=== PATIENT | female | born 1950 | race Caucasian/White ===

== ENCOUNTER → 2020-01-21 11:06 | Outpatient (CLI) | payer MEDICARE, SELFPAY ==
--- NOTE | ~2020-01-21 | US_ITS ---
EXAMINATION: US transvaginal DATE: 01/21/2020 11:37 INDICATION: Left adnexal cyst on MRI TECHNIQUE: Multiple endovaginal sonographic images of the pelvis were obtained. COMPARISON: None. FINDINGS: The uterus is surgically absent. The ovaries are not visualized due to bowel gas however n o adnexal abnormality is seen. There is no free fluid in the pelvis. IMPRESSION: 1. No sonographic abnormality of the pelvis identified. Reviewed, dictated and finalized at location A. 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
== END ==
PROVIDERS: Visit Provider Nurse Practitioner Family
DX: R93.7 Abnormal findings on diagnostic imaging of other parts of musculoskeletal system (principal); N85.8 Other specified noninflammatory disorders of uterus
CPT/HCPCS: 76830

== ENCOUNTER → 2020-05-29 14:28 | Outpatient (CLI) | payer MEDICARE, SELFPAY ==
--- NOTE | ~2020-05-29 | XR_ITS ---
EXAMINATION: XR femur RT min 2V, XR hip RT min 2V DATE: 05/29/2020 14:58 INDICATION: Right thigh pain TECHNIQUE: 1. Anteroposterior and frog-leg lateral views of the right hip, 2. Overlapping frontal and lateral views of the remainder of the more distal right femur were obtaine d. COMPARISON: None. FINDINGS: Alignment is normal. No fracture. No suspected avascular necrosis. Moderate joint space narrowing and moderate size marginal osteophytes in the medial compartment of the right knee. Marginal osteophytes in the patellofemoral and lateral compartments. Right hip joint space appears relatively preserved. No right knee joint effusion. Likely loose osteochondral bodies projecting of the posterior recess of the right knee between the medial and lateral femoral condyles. Soft tissues are unremarkable. IMPRESSION: 1. No acute osseous abnormality from the right hip through the right knee. 2. Moderate severity medial compartment predominant osteoarthritis at the right knee. Reviewed, dictated and finalized at location A. IMPRESSION: 1. No acute osseous abnormality from the right hip through the right knee. 2. Moderate severity medial compartment predominant osteoarthritis at the right knee.
== END ==
PROVIDERS: PCP Family Medicine; Visit Provider Nurse Practitioner Family
DX: M79.659 Pain in unspecified thigh (principal); M17.11 Unilateral primary osteoarthritis, right knee
CPT/HCPCS: 73502; 73552

== ENCOUNTER 2020-08-17 08:32 | Outpatient (CLI) | payer MEDICARE, SELFPAY ==
--- NOTE | ~2020-08-17 | MM_ITS ---
EXAMINATION: MM screening [facility] w [facility]on HISTORY: Screening mammogram TECHNIQUE: Craniocaudal and mediolateral oblique 3-D tomosynthesis images were obtained and synthetic 2-D images were generated. CAD analysis was submitted and interpreted. COMPARISON: 07/28/2019, 03/17/2018, 02/28/2017 bilateral digital screening mammogram examinations BREAST PARENCHYMAL COMPOSITION: There are scattered areas of fibroglandular density. FINDINGS: Stable mild fibroglandular asymmetry. Scattered bilateral benign calcifications. There is n o evidence of suspicious mass, calcification, or architectural distortion to suggest malignancy in ei ther breast. There has been no suspicious interval change. IMPRESSION: 1. No mammographic evidence of malignancy. 2. Recommend routine screening mammography in one year. BI-RADS Category 2: Benign finding(s). Reviewed, dictated and finalized at location A.
== END 2020-08-17 08:33 | disposition home or self-care (01) ==
PROVIDERS: PCP Family Medicine; Visit Provider Family Medicine
DX: Z12.31 Encounter for screening mammogram for malignant neoplasm of breast (principal)
CPT/HCPCS: 77063; 77067

== ENCOUNTER 2021-08-20 07:55 | Outpatient (CLI) | payer MEDICARE, SELFPAY ==
--- NOTE | ~2021-08-20 | MM_ITS ---
EXAMINATION: MM screening [facility] w [facility]on HISTORY: Screening TECHNIQUE: Craniocaudal and mediolateral oblique 3-D tomosynthesis images were obtained and synthetic 2-D images were generated. CAD analysis was submitted and interpreted. COMPARISON: Comparison to multiple prior studies sequentially, with oldest reviewed study dated 03/10. BREAST PARENCHYMAL COMPOSITION: There are scattered areas of fibroglandular density. FINDINGS: There is no evidence of suspicious mass, calcification, or architectural distortion to sugg est malignancy in either breast. There has been no suspicious interval change. IMPRESSION: 1. No mammographic evidence of malignancy. 2. Recommend routine screening mammography in one year. BI-RADS Category 1: Negative Reviewed, dictated and finalized at location A.
== END 2021-08-20 07:56 | disposition home or self-care (01) ==
LOC: ANHIMG 07:58
PROVIDERS: PCP Family Medicine; Visit Provider Family Medicine
DX: Z12.31 Encounter for screening mammogram for malignant neoplasm of breast (principal)
CPT/HCPCS: 77063; 77067

== ENCOUNTER 2022-10-05 11:17 | Outpatient (CLI) | payer MEDICARE, SELFPAY ==
--- NOTE | ~2022-10-05 | MM_ITS ---
EXAMINATION: MM screening [facility] BI w brandon HISTORY: Screening TECHNIQUE: Craniocaudal and mediolateral oblique 3-D tomosynthesis images were obtained and synthetic 2-D images were generated. CAD analysis was submitted and interpreted. COMPARISON: Comparison to multiple prior studies sequentially, with oldest reviewed study dated 11/2015. BREAST PARENCHYMAL COMPOSITION: Breast composed of scattered areas of fibroglandular density FINDINGS: There is no evidence of suspicious mass, calcification, or architectural distortion to sugg est malignancy in either breast. There has been no suspicious interval change. IMPRESSION: 1. No mammographic evidence of malignancy. 2. Recommend routine screening mammography in one year. BI-RADS Category 2: Benign finding(s). Reviewed, dictated and finalized at location A. 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
== END 2022-10-05 11:18 | disposition home or self-care (01) ==
PROVIDERS: PCP Family Medicine; Visit Provider Family Medicine
DX: Z12.31 Encounter for screening mammogram for malignant neoplasm of breast (principal)
CPT/HCPCS: 77063; 77067

== ENCOUNTER 2023-11-10 07:39 | Outpatient (CLI) | payer MEDICARE, SELFPAY ==
--- NOTE | ~2023-11-10 | MM_ITS ---
EXAMINATION: MM screening [facility] BI w brandon HISTORY: Screening mammogram TECHNIQUE: Craniocaudal and mediolateral oblique 3-D tomosynthesis images were obtained and synthetic 2-D images were generated. CAD analysis was submitted and interpreted. COMPARISON: 10/05/2022, 08/20/2021, 08/13/2020 bilateral screening mammogram examinations BREAST PARENCHYMAL COMPOSITION: There are scattered areas of fibroglandular density. FINDINGS: Scattered bilateral benign calcifications. There is no evidence of suspicious mass, calcifi cation, or architectural distortion to suggest malignancy in either breast. There has been no suspici ous interval change. IMPRESSION: 1. No mammographic evidence of malignancy. 2. Recommend routine screening mammography in one year. BI-RADS Category 2: Benign finding(s). Reviewed, dictated and finalized at location A. 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
== END 2023-11-10 07:40 | disposition home or self-care (01) ==
LOC: ANHIMG 07:44
PROVIDERS: PCP Family Medicine; Visit Provider Family Medicine
DX: Z12.31 Encounter for screening mammogram for malignant neoplasm of breast (principal)
CPT/HCPCS: 77063; 77067

== ENCOUNTER 2024-05-27 10:02 | Emergency (ER) | payer OTHER, SELFPAY ==
--- NOTE | ~2024-05-27 | CT_ITS ---
EXAMINATION: CT lumbar spine wo con DATE: 05/27/2024 10:57 INDICATION: Low back pain. TECHNIQUE: Computed tomography (CT) of the lumbar spine was performed without intravenous contrast. A utomated exposure control and iterative reconstruction technique were employed. The dose-length produ ct was 856.79 mGy-cm. COMPARISON: None FINDINGS: There is 6 degrees levocurvature of lumbar spine. There is a chronic burst fracture with 4/ 5 loss of height and retropulsion of bone 9 mm into central spinal canal with moderate central canal stenosis. There is mildly decreased disc height at L2-L3 and L4-L5. The following disc levels are spe cifically discussed: L1-L2: The disc is bulging. There is mild bilateral facet joint osteoarthritis. There is mild bilater al neural foraminal stenosis. There is no central canal stenosis. L2-L3: The disc is bulging. There is ankylosis of the facet joints with mild hypertrophy. There is mi ld bilateral neural foraminal stenosis. There is moderate central canal stenosis. L3-L4: The disc is bulging. There is severe bilateral facet joint osteoarthritis. There is moderate b ilateral neural foraminal stenosis. There is mild central canal stenosis. L4-L5: The disc is bulging. There is severe bilateral facet joint osteoarthritis. There is mild bilat eral neural foraminal stenosis. There is mild central canal stenosis. L5-S1: The disc does not extend beyond the endplate margin. There is ankylosis of the right facet juliette nt with severe hypertrophy. There is severe left facet joint osteoarthritis. There is no neural payal inal stenosis. There is no central canal stenosis. IMPRESSION: 1. Moderate lumbar spondylosis. Reviewed, dictated and finalized at location E.
--- NOTE | ~2024-05-27 | XR_ITS ---
EXAMINATION: XR tibia fibula RT 2V DATE: 05/27/2024 10:58 INDICATION: Right lower leg injury. TECHNIQUE: 2 views of right tibia and fibula were obtained. COMPARISON: None. FINDINGS: Bone alignment is normal. No fracture. There is severe right knee osteoarthritis. IMPRESSION: 1. Severe right knee osteoarthritis. Reviewed, dictated and finalized at location E.
--- NOTE | ~2024-05-27 | XR_ITS ---
EXAMINATION: XR foot LT min 3V DATE: 05/27/2024 10:58 INDICATION: Left foot pain. TECHNIQUE: 4 views of left foot were obtained. COMPARISON: None. FINDINGS: There is severe hallux valgus. No fracture. There is mild osteoarthritis of first metatarso phalangeal joint and some of the interphalangeal joints and midfoot joints. There are enthesophytes a t the posterior and plantar aspects of calcaneal tuberosity. IMPRESSION: 1. Severe hallux valgus. 2. Mild polyarticular osteoarthritis. Reviewed, dictated and finalized at location E.
[2024-05-27 10:17] VITALS: BP 161/91; PULSE 74; RESP 16; TEMP 36.8; O2SAT 99
--- NOTE | 2024-05-27 10:44 | ED.WOUNDLAC ---
HPI - Wound/Laceration General Chief Complaint: Wound/Laceration Stated Complaint: fall-right leg laceration Time Seen by Provider: 05/27/24 10:17 Source: patient Mode of arrival: ambulatory Limitations: no limitations History of Present Illness HPI narrative: this is a 74-year-old female that presents to the emergency department after a fall today with a laceration. Reports she was at the grocery store and slipped on some water. She fell backwards. The cart landed on her leg. Someone was immediately able to help get the cart off of her. She does not believe she hit her head. She did not lose consciousness. She is not on any anticoagulation. She is unsure of her last tetanus vaccination. Reports low back pain, left foot pain. She has been ambulatory since this incident. Denies decreased ROM or numbness. Related Data Home Medications Medication Instructions Recorded Confirmed sumatriptan succinate 100 mg tablet 100 mg PO DAILY PRN migraine 10/22/19 03/04/24 headache Allergies Allergy/AdvReac Type Severity Reaction Status Date / Time codeine AdvReac Intermediate Nausea and Verified 05/27/24 10:03 Vomiting Review of Systems Review of Systems: CONSTITUTIONAL: Denies fever GASTROINTESTINAL: Denies vomiting MUSCULOSKELETAL: Reports back pain, joint pain, and myalgia. NEUROLOGIC: Denies numbness, or weakness. All systems reviewed & are unremarkable except as noted in HPI and below PMFSH Past Medical History Medical History Bladder dysfunction Chronic headaches Migraine Vision loss Surgical History Surgical History History of back surgery 11/24/19 History of bariatric surgery 04/19/21 History of bladder repair surgery 04/29/90, 10/01/04 History of cataract extraction History of cholecystectomy 05/08/16 History of hemorrhoidectomy 11/13/99 History of hysterectomy 04/29/90 History of knee surgery 10/2011 History of umbilical hernia repair 06/17/16 Family History Family History Mother Acute myocardial infarction Cerebrovascular accident Colon cancer Congestive heart failure Diabetes mellitus Social History Social History Smoking status: Never smoker Second hand tobacco smoke exposure: No Alcohol intake: never Substance use: never Substance use type: does not use Do You Feel Safe in your Home?: Yes Lack of Transportation: No Lack of Food: Never True Current Housing: I Have Housing Concerned About Future Housing: No Difficulty Paying Gas/Electric Bills: No Difficulty Paying for Meds: No Currently Unemployed: No Education: High School Diploma/GED Difficulty w/ Childcare or Family Care: No Living arrangements: alone Occupation/Education: retired Gender identity (if verbalized by the patient): Female Spiritual care concerns: No Agree to blood products: Yes Exam Narrative: GENERAL: Well-appearing, well-nourished, and in no acute distress. HEAD: Normocephalic, atraumatic. EYES: PERRLA and EOMI. ENT: Nares clear, no rhinorrhea or epistaxis. Mucous membranes moist. Oropharynx without tonsillar hypertrophy exudate or other lesions. NECK: Supple. No adenopathy or masses. CHEST: Clear to auscultation. No respiratory distress. No wheezes rales or rhonchi HEART: Regular rate and rhythm. No murmur heard. Normal peripheral pulses. BACK: No midline cervical or thoracic spine tenderness EXTREMITIES: Normal range of motion. No edema or obvious deformity. Right ramirez with 10cm flap laceration into subcutaneous tissue. Normal DP pulse. Normal sensation SKIN: Warm, dry, no rash. NEURO: No focal deficits. Alert and oriented x3. CN II-XII grossly intact PSYCH: Normal mood and affect Course Course Emergency Course: Patient and
[2024-05-27] MEDS: TETANUS,DIPHTHERIA,AC PERTUSSIS ADULT (0.5 ML) BOOSTRIX IM (11:15)
== END 2024-05-27 13:30 | disposition home or self-care (01) ==
PROVIDERS: Emergency Provider Physician Assistant; PCP Family Medicine
DX: S81.811A Laceration without foreign body, right lower leg, initial encounter (principal); Z23 Encounter for immunization; Z98.84 Bariatric surgery status; Z98.49 Cataract extraction status, unspecified eye; Z90.49 Acquired absence of other specified parts of digestive tract; Z90.710 Acquired absence of both cervix and uterus; W01.0XXA Fall on same level from slipping, tripping and stumbling without subsequent striking against object, initial encounter; W20.8XXA Other cause of strike by thrown, projected or falling object, initial encounter; M47.816 Spondylosis without myelopathy or radiculopathy, lumbar region; M17.11 Unilateral primary osteoarthritis, right knee; M19.072 Primary osteoarthritis, left ankle and foot; M20.12 Hallux valgus (acquired), left foot
CPT/HCPCS: 12004; 72131; 73590; 73630; 90471; 90715; 99284

== ENCOUNTER 2024-11-12 07:11 | Outpatient (CLI) | payer MEDICARE, SELFPAY ==
--- NOTE | ~2024-11-12 | MM_ITS ---
EXAMINATION: MM screening [facility] BI w [facility]on HISTORY: Screening TECHNIQUE: Craniocaudal and mediolateral oblique 3-D tomosynthesis images were obtained and synthetic 2-D images were generated. CAD analysis was submitted and interpreted. COMPARISON: Comparison to multiple prior studies sequentially, with oldest reviewed study dated 03/17. BREAST PARENCHYMAL COMPOSITION: Not dense: There are scattered areas of fibroglandular density. FINDINGS: There is no evidence of suspicious mass, calcification, or architectural distortion to sugg est malignancy in either breast. There has been no suspicious interval change. IMPRESSION: 1. No mammographic evidence of malignancy. 2. Recommend routine screening mammography in one year. 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
== END 2024-11-12 07:12 | disposition home or self-care (01) ==
LOC: ANHIMG 07:15
PROVIDERS: PCP Nurse Practitioner Family; Visit Provider Nurse Practitioner Family
DX: Z12.31 Encounter for screening mammogram for malignant neoplasm of breast (principal)
CPT/HCPCS: 77063; 77067

== ENCOUNTER 2025-07-12 12:57 | Outpatient (CLI) | payer MEDICARE, SELFPAY ==
--- NOTE | ~2025-07-12 | XR_ITS ---
XR lumbar spine 2-3V 07/12/2025 13:17 Indication: Acute low back pain Procedure: 3 views lumbar spine Comparison: CT dated 05/27/2024 Findings: There is a chronic L3 burst fracture with approximately 80% loss of vertebral body height. There is mild levocurvature of the lumbar spine. There is disc narrowing at L3-4 and L5-S1. There is moderate multilevel facet hypertrophy with grade 1 degenerative spondylolisthesis at L4-5. Impression: 1: Moderate-severe lumbar spondylosis. 2: Chronic L3 burst fracture. Reviewed, dictated and finalized at location A. Impression: 1: Moderate-severe lumbar spondylosis. 2: Chronic L3 burst fracture.
== END 2025-07-12 12:58 | disposition home or self-care (01) ==
PROVIDERS: PCP Internal Medicine; Visit Provider Internal Medicine
DX: M47.816 Spondylosis without myelopathy or radiculopathy, lumbar region (principal); S32.031S Stable burst fracture of third lumbar vertebra, sequela; X58.XXXS Exposure to other specified factors, sequela
CPT/HCPCS: 72100

== ENCOUNTER 2025-11-16 07:27 | Outpatient (CLI) | payer MEDICARE, SELFPAY ==
--- NOTE | ~2025-11-16 | MM_ITS ---
EXAMINATION: MM screening mathew BI w brandon HISTORY: Screening. TECHNIQUE: Craniocaudal and mediolateral oblique 3-D tomosynthesis images were obtained and synthetic 2-D images were generated. CAD analysis was submitted and interpreted. COMPARISON: 2023, 2022, and 2021 BREAST PARENCHYMAL COMPOSITION: Not Dense: There are scattered areas of fibroglandular tissue FINDINGS: No suspicious masses are seen. There are no suspicious calcifications. No unexplained architectural distortion is seen. There are no skin or nipple abnormalities identified. There is no adenopathy seen on the images submitted. IMPRESSION: No mammographic evidence to suggest malignancy is seen. The patient may return to screening mammography as per ACR guidelines. BI-RADS 1 - Negative. Reviewed, dictated and finalized at location A. LE BPM CONSULTANT
--- OUTSIDE RECORDS SUMMARY | 2025-11-16 07:32 | XMS_ITS | Clinical Summary ---
Author Organization [facility] Address [address] [place] [address] Care Team Providers Care Lorry Weigher Name Role Phone Jeffery William MD Primary Care Provider + [phone] Allergies Active Allergy Reactions Criticality Noted Date Comments Codeine Nausea & Vomiting,Na usea only,Other (See comments) High 10/28/2019 Medications oxyBUTYnin (DITROPAN) 1 mg/mL syrup Take 5 mL (5 mg total) by mouth 3 (three) times a day 210 mL 5 Active calcium carbonate suspension 1250 mg/5 mL Administer 5 mL (1,250 mg total) per feeding tube daily 35 mL 5 Active gabapentin (NEURONTIN) solution 250 mg/5 mL Take 6 mL (300 mg total) by mouth 3 (three) times a day 540 mL 11 5 10/05/20 26 Active citalopram (CeleXA) 20 mg tabletIndicatio ns:Anxiety with Depression Take 1 tablet (20 mg total) by mouth every morning Crush tablet and mix into applesauce, pudding, or other liquid of choice for the first 7 days after surgery. 30 tablet 5 10/06/20 26 Active acetaminophen (TYLENOL) solution 160 mg/5 mL Take 15.5 mL (500 mg total) by mouth every 6 (six) hours as needed for pain 120 mL 5 Active ibuprofen (ADVIL,MOTRIN) suspension 100 mg/5 mL Take 20 mL (400 mg total) by mouth every 6 (six) hours as needed for pain 500 mL Active Active Problems Problem Noted Date Diagnosed Date Abnormal weight gain 10/19/2025 Allergic rhinitis 10/19/2025 Burst fracture of lumbar vertebra 10/19/2025 Constipation 10/19/2025 Depressive disorder 10/19/2025 Bladder dysfunction 10/19/2025 Disorder of bladder 10/19/2025 Excessive daytime and night-time sleepiness 09/25 Fever 10/19/2025 Fracture of multiple ribs 10/19/2025 Furuncle 10/19/2025 Hemorrhoids 10/19/2025 Hyperlipidemia 10/19/2025 Obstructive sleep apnea syndrome 10/19/2025 Overview (10/19/2025): on CPAP Shoulder dislocation 10/19/2025 Spasm 10/19/2025 Thumb pain 10/19/2025 Urinary incontinence 10/19/2025 UTI (urinary tract infection) 10/19/2025 Chronic bilateral low back pain without sciatica 10/18/2025 Spinal stenosis of lumbar re gion with neurogenic claudication 10/18/2025 Spondylosis of lumbar region without myelopathy or radiculopathy 10/18/2025 Postlaminectomy syndrome, not elsewhere classifi ed 10/18/2025 Zenker diverticula 10/04/2025 Zenker's diverticulum 09/21/2025 Dysphagia 08/04/2025 Low back pain 08/04/2025 Migraine 02/27/2025 Overactive bladder 02/27/2025 Cellulitis of lower limb 06/09/2024 Angular cheilitis 01/27/2024 Hyperglycemia 01/27/2024 Pain in joint of right shoulder 01/27/2024 Vitamin D deficiency 01/27/2024 Pain in left arm 07/29/2023 Prediabetes 02/03/2020 Encounters Date Type Department Care Team Description 11/09/2025 1:08 PM LENS SILVERER - 11/09/2025 11:59 PM LENS SILVERER Hospital Encounter [facility] [address] [place] [id number] Bret Mata MD Radiculopathy, lumbosacral region [M54.17] (Primary Dx); Chronic bilateral low back pain without sciatica; Postlaminectomy syndrome, not elsewhere classified; Spinal stenosis of lumbar region with neurogenic claudication [M48.062] Discharge Disposition: Discharge to home or self care 11/09/2025 Results Follow[place] [facility] [place] [facility] [address] [facility] 11th Floor [address] [place] [phone] Sanya Palomares MD [place] Esophagram, Double Contrast 11/08/2025 8:36 AM LENS SILVERER - 11/08/2025 11:59 PM LENS SILVERER Hospital Encounter [facility] ([facility]) [address] [place], [place] [phone] Zenker's diverticulum Discharge Disposition: Discharge to home or self care 10/19/2025 1:20 PM LENS SILVERER Office Visit [facility] [address] [facility] 11[address] [place] [phone] Sanya Palomares MD Zenker's diverticulum (Primary Dx) 10/18/2025 8:30 AM LENS SILVERER - 10/18/2025 11:59 PM LENS SILVERER Hospital Encounter [facility] [address] [place] [id number] Buzz Tapia NP Chronic bilateral low back pain without sciatica (Primary Dx); Postlaminectomy syndrome, not elsewhere classified; Spondylosis of lumbar region without myelopathy or radiculopathy; Spinal stenosis of lumbar region with neurogenic claudication Discharge Disposition: Discharge to home or self care 10/04/2025 9:07 AM LENS SILVERER Anesthesia Event [facility] ([facility]) [address] [place] [phone] Chris Kimball MD Thomas, Karen D., ASA 10/04/2025 8:50 AM LENS SILVERER - 10/04/2025 10:53 AM LENS SILVERER Surgery [facility] ([facility]) [address] [place] [address] Rohlfing, Sanya Joel, MD EXCISION ZENKERS DIVERTICULUM ENDOSCOPIC. [40937 (CPT )] 10/04/2025 7:26 AM LENS SILVERER - 10/05/2025 1:11 PM LENS SILVERER Hospital Encounter [facility] [address] [place] [address] Sanya Palomares MD Zenker's diverticulum (Primary Dx) Discharge Disposition: Discharge to home or self care 10/04/2025 Orders Only [facility] E[facility] [address] [facility] [address] [place] [phone] Sanya Palomares MD Zenker's diverticulum (Primary Dx) 10/04/2025 Orders Only [facility] [address] [facility] [address] [place] [phone] Sanya Palomares MD Zenker's diverticulum (Primary Dx) 09/21/2025 9:00 AM CDT [facility] - [facility] [address] [facility] 11th [place] [address] [place] [address] Sanya Palomares MD Zenker's diverticulum (Primary Dx) 09/07/2025 Telephone [facility] [address] [place] [address] Jazz Marti MS 08/17/2025 1:00 PM CDT - 08/17/2025 11:59 PM CDT Hospital Encounter [facility] [address] [place] [phone] Dysphagia, unspecified type Discharge Disposition: Discharge to home or self care from Last 3 Months Surgical History Surgery Date Site/Laterality Comments KNEE ARTHROSCOPY HERNIA REPAIR 06/17/2016 umbilical CHOLECYSTECTOMY 05/08/2016 SPINAL FUSION 11/24/2019 SLEEVE GASTROPLASTY 04/19/2021 HYSTERECTOMY 04/29/1990 and BLADDER REPAIR COLONOSCOPY INCONTINENCE SURGERY 10/01/2004 ORIF PATELLA FRACTURE 10/24/2011 - 11/23/2011 Left EXCISION ZENKERS DIVERTICULUM 10/04/2025 Throat/N/A Procedure: EXCISION ZENKERS DIVERTICULUM ENDOSCOPIC.; Surgeon: Sanya Palomares MD; Location: [facility] OR POD [facility]; Service: Otolaryngology; Laterality: N/A; Medical History Medical History Date Comments Headache Migraines Obesity Sleep apnea, obstructive Arthritis PONV (postoperative nausea and vomiting) Family History Medical History Relation Name Comments Clotting disorder Father Arthritis Mother Cancer Mother Diabetes Mother Heart disease Mother Hypertension Mother Stroke Mother Relation Name Status Comments Father Mother Social History Tobacco Use Types Packs/Day Years Used Date Smoking Tobacco: Never Smokeless Tobacco: Never Alcohol Use Standard Drinks/Week Comments Not Currently 0 (1 standard drink = 0.6 oz pur e alcohol) AUDIT-C Answer Date Recorded Q1: How often do you have a drink containing alcohol? Never 10/04/2025 Q2: How many drinks containi ng alcohol do you have on a typical day when you are drinking? Patient does not drink Q3: How often do you have si x or more drinks on one occasion? Never 10/04/2025 Personal Safety Answer Date Recorded Have you ever been in or are you currently in a harmful physical or emotional relationship or is someone making you feel afraid or unsafe? Denies 10/04/2025 Comments No Sex and Gender Information Value Date Recorded Sex Assigned at Not on file Legal Sex Female 6:31 PM LENS SILVERER Gender Identity Not on file Sexual Orientation Not on file Last Filed Vital Signs Vital Sign Reading Time Taken Comments Blood Pressure 138/70 11/09/2025 2:22 PM LENS SILVERER Pulse 64 11/09/2025 2:22 PM LENS SILVERER Temperature 36.8 C (98.3 F) 11/09/2025 1:42 PM LENS SILVERER Respiratory Rate 16 11/09/2025 2:22 PM LENS SILVERER Oxygen Saturation 99% 11/09/2025 2:22 PM LENS SILVERER Inhaled Oxygen Concentration - - Weight 71.2 kg (157 lb) 10/19/2025 12:57 PM LENS SILVERER Height 162.6 cm (5' 4) 10/19/2025 12:57 PM LENS SILVERER Body Mass Index 26.95 10/19/2025 12:57 PM LENS SILVERER Plan of Treatment Health Maintenance Due Date Last Done Comments Depression Screening 1950 Hepatitis C Screening 1950 Osteoporosis Screening-Bone Density Scan 1950 Hepatitis B Screening 1968 Well Visit 65+ 2014 Pneumococcal vaccine 65+ (2 of 2 - PCV) 08/09/2016 08/09/2015 Covid-19 Vaccine (4 - 2024-2 6 season) 2025 09/17/2021, 01/15/2021, 12/20/2020 Fall Risk Assessment 10/18/2026 10/18/2025 DTaP/Tdap/Td Vaccine (3 - Td or Tdap) 05/27/2034 05/27/2024, 05/28/2018 Zoster Vaccine Completed 11/22/2019, 06/26, 07/22/2019, Additional history exists Influenza Vaccine Completed 09/12/2025, , 07/16/2022, Additional history exists Procedures Procedure Name Priority Date/Time Associated Diagnosis Comments PAIN MGMT IMAGING LUMBAR/CAUDAL EPIDURAL STEROID INJ Schedule Routine, Read Routine (OP Routine) 11/09/2025 2:59 PM LENS SILVERER Chronic bilateral low back pain without sciatica Postlaminectomy syndrome, not elsewhere classified FL ESOPHAGRAM, DOUBLE CONTRAST Schedule Routine, Read Routine (OP Routine) 11/08/2025 10:02 AM LENS SILVERER Zenker's diverticulum NC AN PROCEDURE PLACEHOLDER Routine 10/04/2025 10:16 AM LENS SILVERER NC AN ELECTIVE ENDOTRACHEAL AIRWAY Routine 10/04/2025 10:16 AM LENS SILVERER LASER CO2 10/04/2025 9:12 AM LENS SILVERER Zenker's diverticulum Case Notes 09/28 Per mitchell change to 10/04, third case. SL11/3 - Per July move to 11/01 NB Special Needs laser CO2, accublade. otherwise standard endo Zenkers approach. citlalli diverticuloscope. stapler, endo stitch NC ESOPHAGOSCP RIG TRANSORAL HYPOPHARYNX CRV ESOPH 10/04/2025 9:12 AM LENS SILVERER Zenker's diverticulum Case Notes 09/28 Per mitchell change to 10/04, third case. SL11/3 - Per July move to 11/01 NB Special Needs laser CO2, accublade. otherwise standard endo Zenkers approach. weallegra diverticuloscope. stapler, endo stitch FL ESOPHAGRAM, DOUBLE CONTRAST Schedule Routine, Read Routine (OP Routine) 08/17/2025 2:02 PM CDT Dysphagia, unspecified type from Last 3 Months Results * Imaging Lumbar/Caudal Epidural Steroid INJ (13499) (11/09/2025 2:59 PM LENS SILVERER) Narrative RAD_PACS_CH - 11/09/2025 3:01 PM LENS SILVERER The images from this study are not interpreted by Radiology. Please refer to the physician's procedure / OR operative note. Buzz Tapia NP IMG PAIN MGMT PROCEDURES Holly l Result RAD_PACS_CH * FL Esophagram, Double Contrast (11/08/2025 10:02 AM LENS SILVERER) Anatomical Region Laterality Modality Body N/A Radio Fluoroscop y 11/08/2025 10:4 1 AM LENS SILVERER Impressions 11/08/2025 12:05 PM LENS SILVERER 1. Unchanged morphology of a Zenker's diverticulum. 2. Large volume of contrast reflux with Valsalva maneuvers. 3. Moderate esophageal dysmotility. 4. Small hiatal hernia. Dictated by: Gerald Hoyos M.D. The radiology attending physician has personally reviewed this study, and had reviewed and/or edited this written report and agrees with it. Electronically signed by: Gerhard Pike M.D. Narrative 11/08/2025 12:05 PM LENS SILVERER EXAMINATION: DOUBLE CONTRAST BARIUM ESOPHAGRAM HISTORY: 75-year-old female with Zenker's diverticulum status post diverticulectomy on 10/04/2025. TECHNIQUE: The patient was given barium and effervescent crystals to drink, and multiple fluoroscopic and conventional overhead radiographs were obtained. FINDINGS: On the entertainment centre manager radiograph, there is a lucency posterior to the trachea consistent with the patient's known Zenker's diverticulum. The patient's swallowing function is normal. The esophageal mucosa is normal without fold abnormalities or masses. Again seen is the patient's Zenker's diverticulum which fills with contrast and appears unchanged in morphology. There is moderate esophageal dysmotility. There is passage of contrast through a normal gastroesophageal junction. There is a small hiatal hernia. The visualized portions of the stomach are normal. There is large volume of contrast reflux with Valsalva maneuvers. Procedure Note Gerhard Pike MD - 11/08/2025 EXAMINATION: DOUBLE CONTRAST BARIUM ESOPHAGRAM HISTORY: 75-year-old female with Zenker's diverticulum status post diverticulectomy on 10/04/2025. TECHNIQUE: The patient was given barium and effervescent crystals to drink, and multiple fluoroscopic and conventional overhead radiographs were obtained. FINDINGS: On the entertainment centre manager radiograph, there is a lucency posterior to the trachea consistent with the patient's known Zenker's diverticulum. The patient's swallowing function is normal. The esophageal mucosa is normal without fold abnormalities or masses. Again seen is the patient's Zenker's diverticulum which fills with contrast and appears unchanged in morphology. There is moderate esophageal dysmotility. There is passage of contrast through a normal gastroesophageal junction. There is a small hiatal hernia. The visualized portions of the stomach are normal. There is large volume of contrast reflux with Valsalva maneuvers. IMPRESSION: 1. Unchanged morphology of a Zenker's diverticulum. 2. Large volume of contrast reflux with Valsalva maneuvers. 3. Moderate esophageal dysmotility. 4. Small hiatal hernia. Dictated by: Gerald Hoyos M.D. The radiology attending physician has personally reviewed this study, and had reviewed and/or edited this written report and agrees with it. Electronically signed by: Gerhard Pike M.D. us Sanya Palomares MD IMG FLUOROSCOPY PROCEDUR ES Final Result * NC AN ELECTIVE ENDOTRACHEAL AIRWAY, NC AN PROCEDURE PLACEHOLDER (10/04/2025 10:16 AM LENS SILVERER) Narrative Regina Mcconnell CRNA - 10/04/2025 10:16 AM LENS SILVERER Regina Mcconnell CRNA 10/04/2025 10:17 AM Airway Patient location: OR Urgency: elective Date/time: 10/04/2025 9:23 AM Indications for airway management: anesthesia Difficult airway: no Staff: Supervising provider: Chris Kimball MD Placed by: KOSHER DIETARY SERVICE MANAGER: Regina Mcconnell CRNA Emergent airway documentation: Risks and benefits discussed: yes Consent obtained: yes Consent given by: patient Airway prep: Preoxygenated: yes Patient position: sniffing Mask difficulty assessment: 0 - not attempted Spontaneous ventilation during airway: absent Sedation level during airway: GA Final airway details: Final airway type: endotracheal airway Tube type: laser tube ETT size: 6.0 mm Cuffed: yes Technique used for successful ETT placement: video laryngoscopy Devices/Methods used in placement: stylet Insertion site: oral Blade type: Shanell Video blade type: Newberry Blade size: 3 Cormack-Lehane (video): grade I - full view of glottis Cuff volume: 7 mL Cuff inflated with: air ETT to teeth: 21 cm Placement verified by: auscultation and CO2 detection Airway secured with: silk tape Number of attempts: 1 Ventilation between attempts: none us Chris Kimball MD ANESTHESIA ORDERABL ES Final Result * FL Esophagram, Double Contrast (08/17/2025 2:02 PM CDT) Anatomical Region Laterality Modality Body N/A Computed Radiogr aphy, Computed Radiography 08/17/2025 2:33 PM CDT Narrative 08/17/2025 2:42 PM CDT EXAM DESCRIPTION: FL ESOPHAGRAM BARIUM SWALLOW TO STOMACH, DOUBLE CONTRAST REASON FOR STUDY: R13.10 RADIATION DOSE: Dose: 1816.55 uGym2 Dose Area Product (DAP) TECHNIQUE: Under fluoroscopic guidance, patient ingested effervescent granules followed by thick and thin barium. COMPARISON: None. FINDINGS: 12.5 mm Barium Tablet: The barium tablet is noted 2 lodged within the esophageal diverticulum as described below, with the patient noted recurrence of her symptoms. The tablet subsequently passed with swallows of water. ESOPHAGEAL MOTILITY: No evidence of achalasia. No spasm. Tertiary contractions of the mid to distal esophagus are noted. ESOPHAGEAL MUCOSA: A small posterior midline diverticulum is noted at the C6 level. This measures approximately 1.6 cm anteroposteriorly, and 1.8 cm in the transverse dimension. GASTRO-ESOPHAGEAL JUNCTION: No significant hiatal hernia or evidence of reflux. NON-GI TRACT STRUCTURES: No significant finding. IMPRESSION: A small Zenker's diverticulum is present. The swallowed barium tablet lodged within the diverticulum, with the patient noting associated recurrence of her symptoms. The tablet subsequently cleared with swallows of water. THIS IS AN ELECTRONICALLY VERIFIED FINAL REPORT 08/17/2025 2:42 PM - Electronically signed by Fuentes Baltazar M.D. KR: ARTHUR Report ID: [id number] Reading Location: [place] [address] Procedure Note Fuentes Baltazar MD - 08/17/2025 EXAM DESCRIPTION: FL ESOPHAGRAM BARIUM SWALLOW TO STOMACH, DOUBLECONTRAST REASON FOR STUDY: R13.10 RADIATION DOSE: Dose: 1816.55 uGym2 Dose Area Product (DAP) TECHNIQUE: Under fluoroscopic guidance, patient ingested effervescentgranules followed by thick and thin barium. COMPARISON: None. FINDINGS: 12.5 mm Barium Tablet: The barium tablet is noted 2 lodgedwithin the esophageal diverticulum as described below, with the patient noted recurrence of her symptoms. The tablet subsequently passed with swallowsof water. ESOPHAGEAL MOTILITY: No evidence of achalasia. No spasm. Tertiary contractions of the mid to distal esophagus are noted. ESOPHAGEAL MUCOSA: A small posterior midline diverticulum is noted atthe C6 level. This measures approximately 1.6 cm anteroposteriorly, and 1.8 cmin the transverse dimension. GASTRO-ESOPHAGEAL JUNCTION: No significant hiatal hernia or evidence of reflux. NON-GI TRACT STRUCTURES: No significant finding. IMPRESSION: A small Zenker's diverticulum is present. The swallowedbarium tablet lodged within the diverticulum, with the patient noting associated recurrence of her symptoms. The tablet subsequently cleared with swallowsof water. THIS IS AN ELECTRONICALLY VERIFIED FINAL REPORT 08/17/2025 2:42 PM - Electronically signed by Fuentes Baltazar M.D. KR: KR Report ID: [id number] Reading Location: [place] [address] Jeffery William MD IMG FLUOROSCOPY PROCEDURES F inal Result from Last 3 Months Insurance MEDICARE ADVANTAGE [facility] Address: [address] [place] [phone] MEDICARE ADVANTAGE [facility] Address: [address] [address] [place] [address] Advance Directives For more information, please contact: [phone] * Full Code (Latest Code Status on File) Date Activated Date Inactivated Comments 10/04/2025 1:41 PM 10/05/2025 5:17 PM Care Teams Lorry Weigher Relationship Specialty Start Date End Date Jeffery William MD PCP - General Internal Medicine 09/22/25
--- OUTSIDE RECORDS SUMMARY | 2025-11-16 07:32 | XMS_ITS | Patient Health Record ---
Author Organization [facility] , Address [address] [place] [address] Care Team Providers Care Bb Shot Packer Name Role Phone Tonja Lopez Primary Care Provider Unavailab le Allergies Allergen (clinical drug ingredient) Drug/Non Drug Allergy documented on EMR Reaction Allergy Type Onset Date Status codeine Codeine ill Drug Allergy Active Reason For Referral No Information Medications Medication SIG (Take, Route, Frequency, Duration) Notes Start Date End Date Status traMADol HCl 50 MG Tablet Take 1 tablet Orally every 6 hours as needed for pain; Duration: 7 days 12/30/2019 Active Citalopram Hydrobromide Active Imitrex Active Lovastatin Active methylPREDNISolone 4 MG Tabl et Therapy Pack tablets tablets Orally as directed on package; Duration: 6 days 12/30/2019 Active oxyBUTYnin Active Gabapentin 300 MG Capsule Take 3 capsule s Orally four times per day; Duration: 30 days 12/24/2019 Active Plan Of Treatment No Information Insurance Providers Payer Name Payer Address Payer Phone Subscriber Number Group Number Insured Name Patient Relationship to Insured Coverage Start Date Coverage End Date Medicare [place] [address] [address] [place] [phone] [id number] Roopa Matt Self - patient is the insured [facility] Secondary [address] [place] [address] [id number] Roopa Matt Self - patient is the insured Medical (General) History Medical History History ICD Code Hypercholesterolemia Migraines Anxiety Surgical History Surgery Date(Month/Year) L. knee Cholecystectomy Hernia L2-4 LDL with partial facetectomies and foraminotomies
--- OUTSIDE RECORDS SUMMARY | 2025-11-16 07:32 | XMS_ITS | Encounter Summary ---
Author Organization [facility] Address [address] [place] [address] Phone Care Team Providers Care Certified Dietary Manager Name Role Phone Jeffery William MD Primary Care Provider [phone] Encounter Details Date Type Department Care Team (Late st Contact Info) Description 11/09/2025 Results Follow-Up [facility] - [facility] [address] [facility] 11th [place] [address] [place] [address] Sanya Palomares MD [address] [facility] [address] [place] [address] [place] Esophagram, Double Contrast Social History Tobacco Use Types Packs/Day Years [...] on file Legal Sex Female 6:31 PM AWNING MAKER Gender Identity Not on file Sexual Orientation Not on file documented as of this encounter Plan of Treatment Not on file documented as of this encounter Visit Diagnoses Not on filedocumented in this encounter Care Teams Certified Dietary Manager Relationship Specialty Start Date End Date Jeffery William MD PCP - General Internal Medicine 09/22/25 documented as of this encounter
== END 2025-11-16 07:28 | disposition home or self-care (01) ==
LOC: ANHFOHIMG 07:30
PROVIDERS: PCP Internal Medicine; Visit Provider Internal Medicine
DX: Z12.31 Encounter for screening mammogram for malignant neoplasm of breast (principal)
CPT/HCPCS: 77063; 77067